=== PATIENT | male | born 1995 | race Caucasian/White ===

== ENCOUNTER 2017-02-21 16:53 | Emergency (ER) | payer OTHER ==
[~2017-02-21] VITALS: Ht 182.9 cm; Wt 68.2 kg
[2017-02-21 17:06] VITALS: BP 132/80; PULSE 58; RESP 16; O2SAT 99
--- NOTE | 2017-02-21 17:39 | ED.REPORT ---
HPI-Extremity Problem Upper Date of Service Feb 21, 2017 ED Provider: Doc,Ed MD History of Present Illness: glass cut left hand around 1230 today at work. up to date on tdap 2013. right hand dominant. happened at work. Installs glass doors Nursing Notes Stated Complaint: LACERATION ON HAND Chief Complaint: Laceration Nursing Notes Reviewed: Yes Allergies: Coded Allergies: No Known Allergies (Verified Allergy, Unknown, 02/21/17) General Time Seen by MD: 17:39 Chief Complaint Hand Injury left Hx Obtained From: Patient Onset Occurred: 5 - 8 hours ago Past Medical History Past Medical History Denies: Asthma Past Surgical History wisdom teeth Smoking History Never Smoker Social History Alcohol Use: Denies alcohol use Drug Use: Denies drug use Occupation lives with girlfriend and works for [employer] Status Independent Review of Systems Basic Review of Systems Eyes: Vision NL, No discharge : No dysuria, No frequency Psychiatric: Normal thought content Physical Exam Initial Vital Signs Vital Signs (First) Date Time Temp Pulse Resp B/P Pulse Ox O2 Delivery O2 Flow Rate FiO2 02/21/17 17:06 36.9 58 16 132/80 99 Room Air Initial VS: Reviewed, Vital signs normal General/Constitutional: Well-developed, Well-nourished Head / Eyes: Atraumatic, Normocephalic, PERRL ENT: Mucous membranes moist, Conjunctiva normal, No scleral icterus Neck: Supple, Non-tender, Full range of motion Respiratory: Breath sounds normal, Clear to auscultation, No respiratory distress Cardiovascular: Regular rate & rhythm, Heart sounds normal, Intact distal pulses Abdomen / GI: Soft, Non-tender, No guarding, No rebound, No distention Back: No CVA tenderness Lymphatic: No lymphadenopathy Lower Extremities: Vascular intact, Neuro intact, No swelling, No tenderness Skin: Warm, Dry, No cyanosis Neurologic: Alert, Oriented, Nonfocal Psychiatric: Mood/affect normal, Behavior normal, Normal thought content General/Constitutional: Awake, Alert, No acute distress, Well appearing, Well developed, Well hydrated Respiratory / Chest: Atraumatic, Breath sounds NL, Breath sounds = bilat, No respiratory distress Cardiovascular: Heart rate NL, Regular rhythm, Heart sounds NL left hand has 2 cm laceration on dorsum of hand. patient has full range of motion. Cap refill less than 2 sec. Sensation intact distally. No active bleeding Procedures Laceration Management Time: 18:00 Procedure Performed by: Allied health pract Consent / Setup / Site Prep: Informed consent provided, Consent from patient , Hand hygiene observed, Stand sterile technique Location of Wound: left hand Wound Length: 2 cm Local Anesthesia: Lidocaine 1%, 4cc, 27g needle Digital Block: No Wound Preparation: Normal saline Debridement: None Irrigation: Copious Foreign Body Explore / Removal: Explored for foreign body Repair Skin: ___ O (5), Nylon # Sutures - Skin: 5 Closure Layers: 1 Suture Technique: Simple Post-Procedure / Complications: Antibiotic oint applied, Dressing applied, No complications, Condition improved, Tolerated procedure well, Patient stable Re-Eval/Medical Decision Med Decision/Clinical Course 21 year old male presents for repair of hand laceration which occured while at work. He was carrying a shower door. Up to date on tdap. pain is 2/10. No evidence of foreign body or compartment syndrome. Discharge & Departure Impression: Primary Impression: Laceration Disposition: Home Patient Instructions: Laceration (ED) Additional Instructions: The x-ray did not show any glass in the wound. It was washed extensively. Apply bacitracin to the wound daily. Off work tomorrow, then OK to return on Saturday. Must keep the wound covered while at work. If any redness have Mom take a look and see if you need to return sooner. Sutures out in 10 to 14 days here. Use ibuprofen 800 mg up to 3 times a day as needed for discomfort. Note for work provided. I am sorry this happened. Referrals: [facility] EDSupervising Provider for APC: Tony Ruiz MD copies to: [facility] Noemí Johnson Feb 21, 2017 17:39
--- NOTE | 2017-02-21 18:39 | DRSVH ---
PROCEDURE: X-RAY LEFT HAND, MINIMUM THREE VIEWS ([id number]) INDICATIONS: ? glass in hand TECHNIQUE: 3 views of the hand(s) acquired. COMPARISON: None. FINDINGS: Bones: No fractures or dislocations. Carpal bones are normally aligned. No suspicious bony lesions . Soft tissues: No radiopaque foreign bodies. No suspicious soft tissue calcifications. IMPRESSION: 1. No fractures or radiopaque foreign bodies. Dictated by: Gabriel Stone M.D. on 02/21/2017 at 18:37 Approved by: Gabriel Stone M.D. on 02/21/2017 at 18:37
[2017-02-21 18:55] VITALS: BP 126/80; PULSE 57; RESP 16; O2SAT 99
== END 2017-02-21 18:56 | disposition home or self-care (01) ==
LOC: SED 16:53
DX: S61.412A Laceration without foreign body of left hand, initial encounter (principal); W25.XXXA Contact with sharp glass, initial encounter; Y93.89 Activity, other specified; Y92.69 Other specified industrial and construction area as the place of occurrence of the external cause; Y99.0 Civilian activity done for income or pay